=== PATIENT | male | born 1955 | race African-American/Black ===

== ENCOUNTER 2019-09-29 08:03 | Inpatient (IN) ==
[2019-09-29] MEDS ORDERED: SODIUM CHLORIDE 0.9% 1,000 ML IV STA (08:29)
[2019-09-29 09:15] LABS: Amorphous Crystals,Urine Occasional /HPF (Few); Apearance,Urine Slightly Hazy (Clear); Bacteria,Urine Occasional /HPF (Few); Bilirubin,Urine Negative (Negative); Blood, Urine Negative (Negative); Glucose,Urine (UA) Negative (Negative); Ketones,Urine Negative (Negative); Mucus,Urine Occasional /LPF (Occasional); Nitrite,Urine Negative (Negative); Protein,Urine Negative; RBC,Urine 1 /HPF (0-4); Squamous Epithelial Cell,Urine Occasional /HPF (0-10); Urine Color Yellow (Yellow); Urine Specific Gravity 1.016 (1.001-1.035); Urine Urobilinogen < 2.0 EU/DL (0.2-1.0); WBC,Urine 2 /HPF (0-6)
[2019-09-29 09:28] LABS: Hematocrit 31.1 VOL% (42.0-52.0); Hemoglobin 10.2 GM/DL (14.0-18.0); Immature Granulocytes % 0.6 %; Immature Granulocytes Absolute 0.01 #; Lymphocytes # 0.6 10*3/uL (1.4-4.0); Lymphocytes % 38.5 % (21.2-54.2); Mean Corpuscular HGB Conc 32.8 GM/DL (32-36); Mean Corpuscular Volume 93.7 FL (87-102); Mean Platelet Volume 9.7 FL (9.6-12.0); Monocytes % 9.9 % (1.7-12.7); Platelet Count 137 T/CUMM (130-400); Red Blood Count 3.32 MC/CUMM (3.8-5.5); Red Cell Distribution Width 15.9 % (9.3-17.3); White Blood Count 1.6 T/CUMM (4-12)
[2019-09-29 09:44] LABS: Alanine Aminotransferase 62 U/L (16-61); Alkaline Phosphatase 91 U/L (45-117); Aspartate Amino Transferase 74 U/L (0-37); Bilirubin,Total < 0.39 MG/DL (0.2-1.0); Blood Urea Nitrogen 19 MG/DL (7-18); Calcium 8.5 MG/DL (8.5-10.1); Estimated Glom Filtration Rate 94 ML/MIN; Glucose 99 MG/DL (74-106); Osmolality,Calculated 261.8 MOS/KG (273-304); Total Protein 8.1 G/DL (6.4-8.3)
[2019-09-29 10:18] LABS: Anisocytosis 1+; Band Neutrophils 9 % (0-10); Lymphocytes 27 % (20-55); Platelet Estimate Adequate; Segmented Neutrophils 50 % (50-85); Total Cells Counted 100
[2019-09-29 10:19] LABS: Hypochromasia Slight; Poikilocytosis Slight
[2019-09-29] MEDS ORDERED: hydrALAZINE 20 MG/1 ML VIAL IV PRN (12:23)
[2019-09-29] MEDS ORDERED: GLUCAGON 1 MG VIAL IM PRN (12:23)
[2019-09-29] MEDS ORDERED: DOCUSATE SODIUM 100 MG CAPSULE PO PRN (12:23)
[2019-09-29] MEDS ORDERED: ONDANSETRON 4 MG/2 ML VIAL IV PRN (12:23)
[2019-09-29] MEDS ORDERED: ZALEPLON 5 MG CAPSULE PO PRN (12:23)
[2019-09-29] MEDS ORDERED: DEXTROSE 10% 250 ML BAG IV PRN (12:23)
[2019-09-29] MEDS ORDERED: LEVOFLOXACIN INJ 750 MG in PREMIX 1 EACH IV SCH ×2 (13:00→14:30)
[2019-09-29 13:24] LABS: Thyroid Stimulating Hormone 1.77 uIU/ml (0.358-3.74)
[2019-09-29 13:32] LABS: ABG HCO3 25.2 MMOL/L (20-26); ABG Oxygen Saturation 93.6 % (95-100); ABG PCO2 37.3 MM HG (35-48); ABG PH 7.433 (7.35-7.45); ABG PO2 68.5 MM HG (80-95); ABG TCO2 21.7 MMOL/L (23-27)
[2019-09-29] MEDS ORDERED: POTASSIUM CHLORIDE INJ 10 MEQ in SODIUM CHLORIDE 0.9% 1,000 ML IV SCH (14:30)
[2019-09-29] MEDS ORDERED: CEFEPIME 2,000 MG in SODIUM CHLORIDE 0.9% 100 ML IV SCH (14:30)
[2019-09-29] MEDS: SODIUM CHLORIDE 0.9% 1,000 ML IV SCH (15:15)
[2019-09-29] MEDS: PANTOPRAZOLE 40 MG TABLET PO SCH (15:15)
[2019-09-29] MEDS: CEFEPIME 1,000 MG in SODIUM CHLORIDE 0.9% 100 ML IV SCH ×2 (15:16→21:15)
[2019-09-29] MEDS: FILGRASTIM-SNDZ 480 MCG/0.8 ML SYRINGE SUBCUT SCH (15:16)
[2019-09-29] MEDS: ENOXAPARIN 40 MG/0.4 ML SYRINGE SUBCUT SCH (21:15)
[2019-09-30] MEDS: SODIUM CHLORIDE 0.9% 1,000 ML IV SCH ×4 (00:45→21:46)
[2019-09-30] MEDS: ACETAMINOPHEN 325 MG TABLET PO PRN ×4 (04:45→21:45)
[2019-09-30] MEDS: CEFEPIME 1,000 MG in SODIUM CHLORIDE 0.9% 100 ML IV SCH ×4 (05:30→21:47)
[2019-09-30 05:41] LABS: Basophils % 0.3 % (0.0-0.8); Hematocrit 32.7 VOL% (42.0-52.0); Hemoglobin 10.7 GM/DL (14.0-18.0); Immature Granulocytes % 8.6 %; Immature Granulocytes Absolute 0.25 #; Lymphocytes # 0.8 10*3/uL (1.4-4.0); Lymphocytes % 26.7 % (21.2-54.2); Mean Corpuscular HGB Conc 32.7 GM/DL (32-36); Mean Corpuscular Volume 94.5 FL (87-102); Mean Platelet Volume 12.9 FL (9.6-12.0); Monocytes % 5.1 % (1.7-12.7); Neutrophils % 59.3 % (38.7-73.9); Platelet Count 169 T/CUMM (130-400); Red Blood Count 3.46 MC/CUMM (3.8-5.5); Red Cell Distribution Width 16.4 % (9.3-17.3); White Blood Count 2.9 T/CUMM (4-12)
[2019-09-30 06:08] LABS: Albumin 2.5 G/DL (3.4-5.0); Anisocytosis 1+; Band Neutrophils 3 % (0-10); Bilirubin,Total 0.8 MG/DL (0.2-1.0); Eosinophils 2 % (0-10); Hypochromasia Slight; Lymphocytes 29 % (20-55); Metamyelocytes 1 %; Nucleated Red Blood Cells 1 (0-5); Osmolality,Calculated 257.9 MOS/KG (273-304); Risk Ratio 5.52; Segmented Neutrophils 55 % (50-85); Total Cells Counted 100; Total Protein 7.8 G/DL (6.4-8.3); VLDL CHOLESTEROL 37.2 MG/DL
[2019-09-30] MEDS: amLODIPine 10 MG TABLET PO SCH (08:35)
[2019-09-30] MEDS: PANTOPRAZOLE 40 MG TABLET PO SCH (08:36)
[2019-09-30] MEDS: FILGRASTIM-SNDZ 480 MCG/0.8 ML SYRINGE SUBCUT SCH (08:36)
[2019-09-30] MEDS ORDERED: SODIUM POLYSTYRENE SULFATE 15 GM/60 ML BOTTLE PO ONE (09:00)
[2019-09-30] MEDS: ENOXAPARIN 40 MG/0.4 ML SYRINGE SUBCUT SCH (21:46)
[2019-10-01] MEDS: ACETAMINOPHEN 325 MG TABLET PO PRN ×4 (00:45→20:30)
[2019-10-01] MEDS: CEFEPIME 1,000 MG in SODIUM CHLORIDE 0.9% 100 ML IV SCH ×4 (05:55→22:52)
[2019-10-01] MEDS: SODIUM CHLORIDE 0.9% 1,000 ML IV SCH ×3 (05:55→22:51)
[2019-10-01] MEDS ORDERED: INSULIN REGULAR 100 UNIT/ML IV ONE (07:18)
[2019-10-01] MEDS ORDERED: DEXTROSE 10% 250 ML BAG IV ONE (07:18)
[2019-10-01] MEDS ORDERED: SODIUM POLYSTYRENE SULFATE 15 GM/60 ML BOTTLE PO ONE (07:18)
[2019-10-01] MEDS: PANTOPRAZOLE 40 MG TABLET PO SCH (09:56)
[2019-10-01] MEDS: amLODIPine 10 MG TABLET PO SCH (09:56)
[2019-10-01] MEDS: guaiFENesin/DM ER 600-30 MG TABLET PO PRN ×2 (12:22→20:30)
[2019-10-01 12:36] LABS: Albumin 2.3 G/DL (3.4-5.0); Bilirubin,Total 0.4 MG/DL (0.2-1.0); Calcium 7.9 MG/DL (8.5-10.1); Osmolality,Calculated 261.5 MOS/KG (273-304); Total Protein 6.5 G/DL (6.4-8.3)
[2019-10-01 14:14] LABS: Basophils % 0.3 % (0.0-0.8); Hematocrit 26.2 VOL% (42.0-52.0); Immature Granulocytes % 0.5 %; Immature Granulocytes Absolute 0.03 #; Lymphocytes # 0.7 10*3/uL (1.4-4.0); Lymphocytes % 11.2 % (21.2-54.2); Mean Corpuscular HGB Conc 32.8 GM/DL (32-36); Mean Corpuscular Volume 92.9 FL (87-102); Mean Platelet Volume 10.1 FL (9.6-12.0); Monocytes % 2.9 % (1.7-12.7); Neutrophils % 85.1 % (38.7-73.9); Platelet Count 145 T/CUMM (130-400); Red Blood Count 2.82 MC/CUMM (3.8-5.5); Red Cell Distribution Width 16.1 % (9.3-17.3); White Blood Count 5.8 T/CUMM (4-12)
[2019-10-01 14:19] LABS: Hemoglobin 8.6 GM/DL (14.0-18.0)
[2019-10-01 14:50] LABS: Band Neutrophils 3 % (0-10); Lymphocytes 7 % (20-55); Metamyelocytes 2 %; Nucleated Red Blood Cells 1 (0-5); Segmented Neutrophils 87 % (50-85); Total Cells Counted 100
[2019-10-01 14:52] LABS: Platelet Estimate Adequate
[2019-10-01 14:53] LABS: Atypical Lymphocytes Few; Polychromasia Few; Toxic Granulation 2+
[2019-10-01 14:54] LABS: Anisocytosis 1+; Burr Cells Few; Hypochromasia 2+; Ovalocytes 1+; Poikilocytosis Slight; Schistocytes Few
[2019-10-01] MEDS ORDERED: AZITHROMYCIN 250 MG TABLET PO ONE (15:00)
[2019-10-01] MEDS ORDERED: ZINC SULFATE 220 MG CAPSULE PO SCH (15:00)
[2019-10-01] MEDS: FILGRASTIM-SNDZ 480 MCG/0.8 ML SYRINGE SUBCUT SCH (15:01)
[2019-10-01] MEDS: ZINC SULFATE 220 MG CAPSULE PO SCH (15:12)
[2019-10-01] MEDS: HYDROXYCHLOROQUINE 200 MG TABLET PO SCH (16:50)
[2019-10-01] MEDS: ENOXAPARIN 40 MG/0.4 ML SYRINGE SUBCUT SCH (20:30)
[2019-10-02] MEDS: CEFEPIME 1,000 MG in SODIUM CHLORIDE 0.9% 100 ML IV SCH ×4 (02:15→22:03)
[2019-10-02] MEDS: ACETAMINOPHEN 325 MG TABLET PO PRN ×3 (05:00→22:04)
[2019-10-02] MEDS: SODIUM CHLORIDE 0.9% 1,000 ML IV SCH ×3 (05:11→22:03)
[2019-10-02] MEDS: AZITHROMYCIN 250 MG TABLET PO SCH (10:27)
[2019-10-02] MEDS: HYDROXYCHLOROQUINE 200 MG TABLET PO SCH (10:27)
[2019-10-02] MEDS: amLODIPine 10 MG TABLET PO SCH (10:27)
[2019-10-02] MEDS: PANTOPRAZOLE 40 MG TABLET PO SCH (10:27)
[2019-10-02] MEDS ORDERED: HYDROXYCHLOROQUINE 200 MG TABLET PO SCH (21:00)
[2019-10-02] MEDS: ENOXAPARIN 40 MG/0.4 ML SYRINGE SUBCUT SCH (22:03)
[2019-10-02] MEDS: guaiFENesin/DM ER 600-30 MG TABLET PO PRN (22:04)
[2019-10-03] MEDS: ACETAMINOPHEN 325 MG TABLET PO PRN (01:54)
[2019-10-03] MEDS: CEFEPIME 1,000 MG in SODIUM CHLORIDE 0.9% 100 ML IV SCH ×3 (02:35→14:49)
[2019-10-03] MEDS: SODIUM CHLORIDE 0.9% 1,000 ML IV SCH ×2 (05:26→14:17)
[2019-10-03 06:29] LABS: Basophils % 0.4 % (0.0-0.8); Eosinophils % 0.1 % (0.00-10.9); Hematocrit 27.9 VOL% (42.0-52.0); Immature Granulocytes % 2.5 %; Lymphocytes # 0.9 10*3/uL (1.4-4.0); Lymphocytes % 11.4 % (21.2-54.2); Mean Corpuscular HGB Conc 32.3 GM/DL (32-36); Mean Corpuscular Volume 94.9 FL (87-102); Mean Platelet Volume 10.1 FL (9.6-12.0); Monocytes % 4.8 % (1.7-12.7); NRBC # 0.03 10*3/uL; Neutrophils % 80.8 % (38.7-73.9); Platelet Count 162 T/CUMM (130-400); Red Blood Count 2.94 MC/CUMM (3.8-5.5); Red Cell Distribution Width 16.6 % (9.3-17.3)
[2019-10-03 06:42] LABS: Calcium 8.2 MG/DL (8.5-10.1); Osmolality,Calculated 263.4 MOS/KG (273-304)
[2019-10-03 07:06] LABS: Band Neutrophils 3 % (0-10); Lymphocytes 9 % (20-55); Nucleated Red Blood Cells 2 (0-5); Segmented Neutrophils 85 % (50-85); Total Cells Counted 100
[2019-10-03 07:07] LABS: Hypochromasia 1+
[2019-10-03 07:08] LABS: Anisocytosis 1+; Microcytosis 1+
[2019-10-03 07:09] LABS: Platelet Estimate Adequate
[2019-10-03] MEDS: PANTOPRAZOLE 40 MG TABLET PO SCH (09:51)
[2019-10-03] MEDS: POTASSIUM CHLORIDE 20 MEQ TABLET PO PRN ×5 (09:51→15:30)
[2019-10-03] MEDS: amLODIPine 10 MG TABLET PO SCH (09:52)
[2019-10-03] MEDS: AZITHROMYCIN 250 MG TABLET PO SCH (09:52)
[2019-10-03] MEDS: ZINC SULFATE 220 MG CAPSULE PO SCH (14:51)
[2019-10-03 17:24] VITALS: BP 128/72
== END 2019-10-03 19:07 | disposition home or self-care (01) | DRG 178 ==
LOC: N.ED 08:03 → SUATTDRO 12:23 → N.EDINP 12:23 → N.2E 13:34
PROVIDERS: ADMIT Family Medicine; ATTEND Internal Medicine